=== PATIENT | female | born 1965 | race Caucasian/White ===

== ENCOUNTER → 2023-08-03 10:41 | Outpatient (REF) | payer BC, SELFPAY | LOC: RAD 10:41 | PROVIDERS: ATTENDING PHYSICIAN Nurse Practitioner Family; FAMILY PHYSICIAN Internal Medicine Geriatric Medicine | DX: R10.11 Right upper quadrant pain (principal) | CPT/HCPCS: 76700 ==

== ENCOUNTER → 2023-09-13 14:50 | Outpatient (REF) | payer BC, SELFPAY | LOC: WDC 14:50 | PROVIDERS: ATTENDING PHYSICIAN Obstetrics & Gynecology Gynecology; FAMILY PHYSICIAN Internal Medicine Geriatric Medicine | DX: Z12.31 Encounter for screening mammogram for malignant neoplasm of breast (principal) | CPT/HCPCS: 77063; 77067 ==

== ENCOUNTER → 2024-03-11 09:52 | Outpatient (REF) | payer BC, SELFPAY | LOC: RAD 09:52 | PROVIDERS: ATTENDING PHYSICIAN Internal Medicine Geriatric Medicine | DX: E01.0 Iodine-deficiency related diffuse (endemic) goiter (principal); Z00.00 Encounter for general adult medical examination without abnormal findings; M79.10 Myalgia, unspecified site; G62.9 Polyneuropathy, unspecified; Z13.89 Encounter for screening for other disorder | CPT/HCPCS: 76536; 76830; 76856 ==

== ENCOUNTER → 2024-03-26 06:28 | Day surgery (SDC) | payer BC, SELFPAY | LOC: GI 06:28 | PROVIDERS: ATTENDING PHYSICIAN Internal Medicine Gastroenterology | DX: Z12.11 Encounter for screening for malignant neoplasm of colon (principal); Z86.0100 Personal history of colon polyps, unspecified; K64.0 First degree hemorrhoids; R09.A2 Foreign body sensation, throat; K31.7 Polyp of stomach and duodenum; K27.9 Peptic ulcer, site unspecified, unspecified as acute or chronic, without hemorrhage or perforation; F45.8 Other somatoform disorders | CPT/HCPCS: 43239; G0105; 88305; 88342 ==

== ENCOUNTER → 2024-11-01 08:17 | Outpatient (REF) | payer OTHER, SELFPAY | LOC: HWRAD 08:17 | PROVIDERS: ATTENDING PHYSICIAN Internal Medicine Geriatric Medicine | DX: M79.10 Myalgia, unspecified site (principal); R09.89 Other specified symptoms and signs involving the circulatory and respiratory systems; Z82.49 Family history of ischemic heart disease and other diseases of the circulatory system; E01.0 Iodine-deficiency related diffuse (endemic) goiter | CPT/HCPCS: 76536; 77080 ==

== ENCOUNTER → 2024-11-05 11:31 | Outpatient (REF) | payer OTHER, SELFPAY | LOC: RAD 11:31 | PROVIDERS: ATTENDING PHYSICIAN Internal Medicine Geriatric Medicine | DX: M79.10 Myalgia, unspecified site (principal) | CPT/HCPCS: 75571 ==

== ENCOUNTER → 2025-02-18 09:42 | Outpatient (REF) | payer OTHER, SELFPAY | LOC: RAD 09:42 | PROVIDERS: ATTENDING PHYSICIAN Internal Medicine Geriatric Medicine | DX: E78.2 Mixed hyperlipidemia (principal); M79.10 Myalgia, unspecified site; R09.89 Other specified symptoms and signs involving the circulatory and respiratory systems; E55.9 Vitamin D deficiency, unspecified; G62.9 Polyneuropathy, unspecified; G60.9 Hereditary and idiopathic neuropathy, unspecified; E01.0 Iodine-deficiency related diffuse (endemic) goiter; Z82.49 Family history of ischemic heart disease and other diseases of the circulatory system; Z13.89 Encounter for screening for other disorder | CPT/HCPCS: 73565 ==

== ENCOUNTER → 2025-03-07 08:33 | Outpatient (REF) | payer OTHER, SELFPAY | LOC: MRI 3T 08:33 | PROVIDERS: ATTENDING PHYSICIAN Internal Medicine Geriatric Medicine | DX: R13.10 Dysphagia, unspecified (principal); L51.1 Stevens-Johnson syndrome | CPT/HCPCS: 70553; 72156; A9575 ==

== ENCOUNTER → 2025-03-30 08:19 | Outpatient (REF) | payer OTHER, SELFPAY | LOC: MRI 08:19 | PROVIDERS: ATTENDING PHYSICIAN Internal Medicine Geriatric Medicine | DX: M17.11 Unilateral primary osteoarthritis, right knee (principal); M25.561 Pain in right knee | CPT/HCPCS: 73721 ==

== ENCOUNTER → 2025-04-09 09:58 | Outpatient (REF) | payer OTHER, SELFPAY | LOC: HWWDC 09:58 | PROVIDERS: ATTENDING PHYSICIAN Obstetrics & Gynecology Gynecology; FAMILY PHYSICIAN Internal Medicine Geriatric Medicine | DX: Z12.31 Encounter for screening mammogram for malignant neoplasm of breast (principal) | CPT/HCPCS: 77063; 77067 ==